=== PATIENT | female | born 2005 | race Caucasian/White ===

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

== ENCOUNTER 2025-05-25 20:37 | Emergency (ER) | payer MEDICAID ==
[~2025-05-25] VITALS: Ht 167.6 cm; Wt 80.0 kg
[2025-05-25 21:04] VITALS: O2SAT 99
[2025-05-25 21:41] VITALS: BP 133/81; PULSE 98; RESP 18; TEMP 36.9; O2SAT 99
[2025-05-26 00:07] LABS: BASOPHILS % 0.4 % (0.0-2.0); EOSINOPHILS % 0.3 % (0.0-5.0); HEMATOCRIT. 39.0 % (36.0-48.0); HEMOGLOBIN. 13.0 g/dL (12.0-16.0); LYMPHOCYTES % 36.4 % (20.0-50.0); MEAN PLATELET VOLUME 7.9 fl (7.4-10.4); MONOCYTES % 6.4 % (2.0-8.0); NEUTROPHILS % 56.5 % (40.0-76.0); PLATELET 297 x1000/uL (130-400); RED BLOOD CELL COUNT 4.23 mill/uL (4.2-5.4); RED CELL DISTRIBUTION WIDTH 12.6 % (11.6-14.6)
[2025-05-26 00:17] LABS: HCG SCREEN NEGATIVE
[2025-05-26 00:18] LABS: CREATININE 0.9 mg/dL (0.6-1.0); UREA NITROGEN BLOOD 13 mg/dL (9-23)
[2025-05-26 00:20] LABS: ASPARTATE AMINOTRANSFERASE 21 IU/L (<34); BILIRUBIN DIRECT 0.1 mg/dL (<=3.0); BILIRUBIN TOTAL 0.5 mg/dL (0.1-1.0)
[2025-05-26 00:21] LABS: PROTEIN TOTAL 7.3 g/dL (6.0-8.3)
[2025-05-26] MEDS ORDERED: ONDA4TAB50 MT (01:59)
[2025-05-26] MEDS ORDERED: TOPUD MT (01:59)
== END 2025-05-26 02:43 | disposition home or self-care (01) ==
LOC: ER 20:37
DX: S09.8XXA Other specified injuries of head, initial encounter (principal); R11.2 Nausea with vomiting, unspecified; R19.7 Diarrhea, unspecified; J45.909 Unspecified asthma, uncomplicated; Z91.040 Latex allergy status; Z79.899 Other long term (current) drug therapy; X58.XXXA Exposure to other specified factors, initial encounter; Y93.89 Activity, other specified; Y92.89 Other specified places as the place of occurrence of the external cause; Y99.8 Other external cause status
CPT/HCPCS: 36415; 80048; 80076; 84703; 85025; 99284